=== PATIENT | female | born 1945 | race Caucasian/White ===

== ENCOUNTER 2017-06-26 14:08 | Inpatient (IN) | payer MEDICARE, MEDICAID ==
[~2017-06-26] VITALS: Ht 157.5 cm; Wt 57.6 kg
[~2017-06-26 14:08] MED LIST: MIDO10TA PO; PANT40TA4 PO
[2017-06-26] MEDS ORDERED: SODIUM CHLORIDE 0.9% 1,000 ML IV ONE (14:43)
[2017-06-26] MEDS ORDERED: LORAZEPAM 2MG/ML CPJ IM ONE (14:45)
[2017-06-26] MEDS ORDERED: VANCOMYCIN 1 G PREMIX 200 ML IV SCH (14:45)
[2017-06-26 16:00] LABS: BASOPHILS % 1.3 % (0.0-2.0); EOSINOPHILS % 2.8 % (0.0-5.0); HEMATOCRIT. 33.5 % (36.0-48.0); HEMOGLOBIN. 11.4 g/dL (12.0-16.0); LYMPHOCYTES % 15.5 % (20.0-50.0); MEAN CORPUSCULAR HEMOGLOBIN 29.5 pg (28.0-32.0); MEAN CORPUSCULAR VOLUME 86.6 fL (81.0-99.0); MEAN PLATELET VOLUME 8.1 fl (7.4-10.4); MONOCYTES % 11.2 % (2.0-8.0); NEUTROPHILS % 69.2 % (40.0-76.0); PLATELET 252 x1000/uL (130-400); RED BLOOD CELL COUNT 3.87 mill/uL (4.2-5.4); RED CELL DISTRIBUTION WIDTH 14.9 % (11.6-14.6)
[2017-06-26 16:01] LABS: CHLORIDE 109 mEq/L (98-107)
[2017-06-26 16:03] LABS: INR 1.2; PROTHROMBIN TIME 12.6 sec (9.4-11.6)
[2017-06-26 16:05] LABS: ETHANOL BLOOD < 10 mg/dL
[2017-06-26 16:07] LABS: CLARITY URINE CLOUDY (CLEAR); COLOR URINE DARK YELLOW (YELLOW); KETONES URINE NEGATIVE (NEGATIVE); LEUKOCYTE ESTERASE URINE TRACE (NEGATIVE); NITRITE URINE NEGATIVE (NEGATIVE); OCCULT BLOOD URINE NEGATIVE (NEGATIVE); PROTEIN URINE TRACE (NEGATIVE); SPECIFIC GRAVITY URINE 1.018 (1.005-1.030); UROBILINOGEN URINE 0.2 E.U./dL (0.2-1.0)
[2017-06-26 16:10] LABS: CREATINE KINASE 34 IU/L (26-192)
[2017-06-26 16:23] LABS: *BARBITURATES SCREEN URINE NEGATIVE (NEGATIVE)
[2017-06-26 16:24] LABS: *BENZODIAZEPINES SCREEN URINE PRESUMTIVE POSITIVE (NEGATIVE); *COCAINE SCREEN URINE NEGATIVE (NEGATIVE); CANNABINOID URINE SCREEN NEGATIVE (NEGATIVE); METHADONE URINE SCREEN NEGATIVE (NEGATIVE); OPIATES URINE SCREEN PRESUMTIVE POSITIVE (NEGATIVE); PHENCYCLIDINE URINE SCREEN NEGATIVE (NEGATIVE)
[2017-06-26 16:26] LABS: *AMPHETAMINES SCREEN URINE NEGATIVE (NEGATIVE)
[2017-06-26] MEDS ORDERED: LORAZEPAM 2MG/ML CPJ IV ONE (17:00)
[2017-06-26] MEDS ORDERED: PIPERACILLIN/TAZ 3.375G PREMIX 50 ML IV ONE (17:30)
[2017-06-26 20:00] VITALS: BP 99/53
[2017-06-26 20:50] VITALS: BP 99/53
[2017-06-26] MEDS ORDERED: DEXT 5%/0.9% NACL 1,000 ML IV SCH (21:45)
[2017-06-26] MEDS ORDERED: LEVOFLOXACIN 500MG PREMIX 100 ML IV SCH (23:30)
[2017-06-27] VITALS: BP 113/42
[2017-06-27] MEDS: LORAZEPAM 2MG/ML CPJ IV PRN ×2 (03:11→22:27)
[2017-06-27 04:00] VITALS: BP 108/50
[2017-06-27 06:52] LABS: HEMATOCRIT. 28.4 % (36.0-48.0); HEMOGLOBIN. 9.9 g/dL (12.0-16.0); MEAN CORPUSCULAR HEMOGLOBIN 30.3 pg (28.0-32.0); MEAN CORPUSCULAR VOLUME 86.5 fL (81.0-99.0); MEAN PLATELET VOLUME 8.2 fl (7.4-10.4); PLATELET 179 x1000/uL (130-400); RED BLOOD CELL COUNT 3.28 mill/uL (4.2-5.4); RED CELL DISTRIBUTION WIDTH 14.7 % (11.6-14.6)
[2017-06-27 07:07] LABS: CHLORIDE 116 mEq/L (98-107)
[2017-06-27 07:18] LABS: CREATINE KINASE 29 IU/L (26-192)
[2017-06-27 07:23] LABS: CREATINE KINASE MB FRACTION 3.8 ng/mL (0.5-3.6)
[2017-06-27 08:00] VITALS: BP 101/62
[2017-06-27] MEDS ORDERED: POTASSIUM CHLORIDE 20MEQ/PACKET PO SCH (11:30)
[2017-06-27 12:00] VITALS: BP 92/42
[2017-06-27] MEDS: DEXTROSE 5% WATER 1,000 ML IV SCH (15:33)
[2017-06-27 16:12] LABS: CREATINE KINASE 36 IU/L (26-192)
[2017-06-27 16:13] LABS: CREATINE KINASE MB FRACTION 3.7 ng/mL (0.5-3.6)
[2017-06-27 20:00] VITALS: BP 92/47
[2017-06-27 23:33] LABS: CREATINE KINASE 32 IU/L (26-192)
[2017-06-27 23:34] LABS: CREATINE KINASE MB FRACTION 4.3 ng/mL (0.5-3.6)
[2017-06-27 23:39] LABS: PLATELET ESTIMATE NORMAL
[2017-06-28] VITALS: BP 93/51
[2017-06-28] MEDS: DEXTROSE 5% WATER 1,000 ML IV SCH ×2 (02:20→12:16)
[2017-06-28 04:00] VITALS: BP 91/46
[2017-06-28 06:53] LABS: CHLORIDE 113 mEq/L (98-107)
[2017-06-28 08:00] VITALS: BP 96/41
[2017-06-28 09:18] LABS: BASOPHILS % 1.5 % (0.0-2.0); EOSINOPHILS % 7.1 % (0.0-5.0); HEMATOCRIT. 30.6 % (36.0-48.0); HEMOGLOBIN. 10.3 g/dL (12.0-16.0); LYMPHOCYTES % 26.1 % (20.0-50.0); MEAN CORPUSCULAR HEMOGLOBIN 30.2 pg (28.0-32.0); MEAN CORPUSCULAR VOLUME 89.5 fL (81.0-99.0); MEAN PLATELET VOLUME 8.8 fl (7.4-10.4); MONOCYTES % 12.8 % (2.0-8.0); NEUTROPHILS % 52.5 % (40.0-76.0); PLATELET 159 x1000/uL (130-400); RED BLOOD CELL COUNT 3.42 mill/uL (4.2-5.4); RED CELL DISTRIBUTION WIDTH 15.1 % (11.6-14.6)
[2017-06-28 09:19] LABS: CHLORIDE 113 mEq/L (98-107)
[2017-06-28] MEDS ORDERED: POTASSIUM CHLORIDE 20MEQ TABLET SR PO SCH (11:45)
[2017-06-28 12:00] VITALS: BP 147/76
[2017-06-28 16:00] VITALS: BP 99/54
[2017-06-28 18:24] VITALS: BP 99/54
== END 2017-06-28 20:30 | disposition home or self-care (01) | DRG 70 ==
LOC: ER 14:15 → 5WST 17:27 → EDBEDREQ 17:32 → ENRESERV 18:09
PROVIDERS: ADMIT Family Medicine; ATTEND Family Medicine
DX: G93.41 Metabolic encephalopathy (principal); L89.153 Pressure ulcer of sacral region, stage 3; F03.90 Unspecified dementia, unspecified severity, without behavioral disturbance, psychotic disturbance, mood disturbance, and anxiety; N39.0 Urinary tract infection, site not specified; E78.5 Hyperlipidemia, unspecified; I10 Essential (primary) hypertension; Z74.01 Bed confinement status; Z87.01 Personal history of pneumonia (recurrent); Z79.899 Other long term (current) drug therapy
CPT/HCPCS: 36415; 70450; 71045; 80048; 80053; 80305; 81003; 82550; 82553; 83605; 84484; 85025; 85610; 87040; 87086; 93005; 93970; 96365; 96366; 96367; 96372; 96375; 99285; G0482; J1956; J2060; J2543; J3370; J7030; J7042; J7070; A4315